=== PATIENT | male | born 1965 | race Caucasian/White ===

== ENCOUNTER 2018-05-11 09:23 | Emergency (ER) | payer OTHER ==
[~2018-05-11] VITALS: Ht 170.2 cm; Wt 91.6 kg
[2018-05-11 09:29] VITALS: BP 143/93; Ht 170.2 cm; Wt 91.6 kg
== END 2018-05-11 10:58 | disposition home or self-care (01) ==
LOC: ED 09:23
DX: H10.11 Acute atopic conjunctivitis, right eye (principal)

== ENCOUNTER 2019-03-04 14:20 | Emergency (ER) | payer OTHER ==
[~2019-03-04] VITALS: Ht 170.2 cm; Wt 93.4 kg
[2019-03-04 14:23] VITALS: BP 145/97; Ht 170.2 cm; Wt 93.4 kg
== END 2019-03-04 15:40 | disposition home or self-care (01) ==
LOC: ED 14:20
DX: L50.9 Urticaria, unspecified (principal); R03.0 Elevated blood-pressure reading, without diagnosis of hypertension